=== PATIENT | male | born 1980 | race African-American/Black ===

== ENCOUNTER 2018-09-09 15:53 | Emergency (ER) | payer OTHER ==
[~2018-09-09] VITALS: Ht 170.2 cm; Wt 97.5 kg
[2018-09-09 16:01] VITALS: BP 140/87
[2018-09-09] MEDS ORDERED: NORVASC10 MG PO (16:03)
[2018-09-09] MEDS ORDERED: KEFLEX500 M1 PO (16:14)
== END 2018-09-09 16:23 | disposition home or self-care (01) ==
LOC: M.ERS 15:53
DX: H66.91 Otitis media, unspecified, right ear (principal); I10 Essential (primary) hypertension